=== PATIENT | female | born 1965 | race Caucasian/White ===

== ENCOUNTER 2016-05-20 16:18 | Emergency (ER) | payer MEDICAID ==
[~2016-05-20] VITALS: Ht 157.5 cm; Wt 64.5 kg
[~2016-05-20 16:18] MED LIST: ALPR-475 PO; TRAZ100T15 PO; ZIPR40CA2 PO
[2016-05-20 19:22] VITALS: BP 92/54
== END 2016-05-20 19:24 | disposition home or self-care (01) ==
LOC: ED 17:28
DX: K59.00 Constipation, unspecified (principal); F41.1 Generalized anxiety disorder; F31.9 Bipolar disorder, unspecified; F10.20 Alcohol dependence, uncomplicated; Z87.891 Personal history of nicotine dependence
CPT/HCPCS: 36415; 74020; 80047; 99285

== ENCOUNTER 2016-06-19 02:09 | Emergency (ER) | payer MEDICAID ==
[~2016-06-19] VITALS: Ht 157.5 cm; Wt 64.0 kg
[2016-06-19] MEDS ORDERED: CARB200T PO (02:18)
[2016-06-19] MEDS ORDERED: HYDR10TA4 PO (02:18)
[2016-06-19] MEDS ORDERED: HYDROcodone/APAP 5/325 TABLET ONE (03:29)
[2016-06-19] MEDS ORDERED: DIPH,PERTUSS(ACELL),TET VAC/PF 0.5 ML IM-VACC ONE ×2 (03:29→03:30)
[2016-06-19] MEDS ORDERED: HYDROcodone/APAP 5/325 TABLET PO ONE (03:30)
[2016-06-19 05:01] VITALS: BP 112/67
== END 2016-06-19 05:03 | disposition home or self-care (01) ==
LOC: ED 03:33
DX: S02.2XXB Fracture of nasal bones, initial encounter for open fracture (principal); S01.21XA Laceration without foreign body of nose, initial encounter; T14.8 Other injury of unspecified body region; F43.10 Post-traumatic stress disorder, unspecified; F10.20 Alcohol dependence, uncomplicated; K58.9 Irritable bowel syndrome, unspecified; Y09 Assault by unspecified means; Y92.009 Unspecified place in unspecified non-institutional (private) residence as the place of occurrence of the external cause; Y99.8 Other external cause status
CPT/HCPCS: 70450; 70486; 90471; 90715

== ENCOUNTER 2016-08-03 11:04 | Emergency (ER) | payer MEDICAID ==
[~2016-08-03] VITALS: Ht 157.5 cm; Wt 60.2 kg
[~2016-08-03 11:04] MED LIST changes: +CARB200T PO; +HYDR10TA4 PO
[2016-08-03] MEDS ORDERED: HYDROcodone/APAP 5/325 TABLET ONE (11:44)
[2016-08-03] MEDS ORDERED: IBUPROFEN 200 MG TABLET ONE (11:44)
[2016-08-03] MEDS ORDERED: IBUPROFEN 200 MG TABLET PO ONE (12:00)
[2016-08-03] MEDS ORDERED: HYDROcodone/APAP 5/325 TABLET PO ONE (12:00)
[2016-08-03 12:50] VITALS: BP 103/58
== END 2016-08-03 12:53 | disposition home or self-care (01) ==
LOC: ED 12:49
DX: S63.511A Sprain of carpal joint of right wrist, initial encounter (principal); X58.XXXA Exposure to other specified factors, initial encounter; Y93.89 Activity, other specified; Y92.89 Other specified places as the place of occurrence of the external cause; Y99.9 Unspecified external cause status
CPT/HCPCS: 29125; 99284

== ENCOUNTER 2016-09-04 08:27 | Emergency (ER) | payer MEDICAID ==
[~2016-09-04] VITALS: Ht 157.5 cm; Wt 63.2 kg
[2016-09-04] MEDS ORDERED: GABA300C10 PO (08:50)
[2016-09-04] MEDS ORDERED: LEVE250T28 PO (08:50)
[2016-09-04] MEDS ORDERED: SODIUM CHLORIDE FLUSH 10ML SYR IVF ONE (10:00)
[2016-09-04] MEDS ORDERED: SODIUM CHLORIDE 0.9% 1,000ML IVBOLUS ONE (10:00)
[2016-09-04] MEDS ORDERED: ONDANSETRON 2MG/ML, 2ML IVPush ONE (10:00)
[2016-09-04 10:36] LABS: ASPARTATE AMINO TRANSFERASE 30 U/L (15-37); BLOOD UREA NITROGEN 13 mg/dL (7-18)
[2016-09-04 13:00] VITALS: BP 99/62
[2016-09-04] MEDS ORDERED: OMNIPAQUE 350 MG/ML, 100ML BOTTLE ONE (19:43)
== END 2016-09-04 13:39 | disposition home or self-care (01) ==
LOC: ED 10:24
DX: R19.7 Diarrhea, unspecified (principal); F43.10 Post-traumatic stress disorder, unspecified
CPT/HCPCS: 36415; 74177; 80053; 81001; 84703; 85025; 87324; 89055; 96360; 99285; J7030; Q9967

== ENCOUNTER 2017-12-22 12:34 | Emergency (ER) | payer MEDICAID, OTHER ==
[~2017-12-22] VITALS: Ht 157.5 cm; Wt 60.5 kg
[~2017-12-22 12:34] MED LIST changes: +GABA300C10 PO; +LEVE250T28 PO; +TRAZ-137 PO; -TRAZ100T15 PO
[2017-12-22 12:40] VITALS: BP 111/77
[2017-12-22] MEDS ORDERED: HYDROcodone/APAP 5/325 TABLET ONE (12:56)
[2017-12-22] MEDS ORDERED: HYDROcodone/APAP 5/325 TABLET PO PRN (13:00)
== END 2017-12-22 13:44 | disposition home or self-care (01) ==
LOC: ED 13:30
DX: S90.111A Contusion of right great toe without damage to nail, initial encounter (principal); X58.XXXA Exposure to other specified factors, initial encounter; Y93.89 Activity, other specified; Y92.009 Unspecified place in unspecified non-institutional (private) residence as the place of occurrence of the external cause; Y99.8 Other external cause status
CPT/HCPCS: 82962; 99284

== ENCOUNTER 2017-12-27 16:14 | Emergency (ER) | payer OTHER ==
[~2017-12-27] VITALS: Ht 157.5 cm; Wt 62.4 kg
[2017-12-27 16:18] VITALS: BP 106/71
== END 2017-12-27 16:48 | disposition home or self-care (01) ==
LOC: ED 16:30
DX: Z02.89 Encounter for other administrative examinations (principal); I10 Essential (primary) hypertension; E11.9 Type 2 diabetes mellitus without complications; F31.9 Bipolar disorder, unspecified; F43.10 Post-traumatic stress disorder, unspecified; Z87.891 Personal history of nicotine dependence
CPT/HCPCS: 99281

== ENCOUNTER 2018-03-22 20:40 | Emergency (ER) | payer MEDICAID, OTHER ==
[~2018-03-22] VITALS: Ht 154.9 cm; Wt 62.9 kg
[2018-03-22 20:42] VITALS: BP 127/77
[2018-03-22] MEDS ORDERED: LIDOCAINE 1%, 10ML INFIL ONE (21:00)
[2018-03-22] MEDS ORDERED: LIDOCAINE 2% VISCOUS 15 ML UDC MM PRN (21:00)
[2018-03-22] MEDS ORDERED: HYDROcodone/APAP 5/325 TABLET PO ONE (21:00)
[2018-03-22] MEDS ORDERED: CLINDAMYCIN 300 MG CAPSULE PO ONE (21:00)
[2018-03-22] MEDS ORDERED: LIDOCAINE-MPF 1%, 5ML ONE (21:17)
[2018-03-22] MEDS ORDERED: LIDOCAINE 2% VISCOUS 15 ML UDC ONE (21:17)
[2018-03-22] MEDS ORDERED: HYDROcodone/APAP 5/325 TABLET ONE (21:17)
[2018-03-22] MEDS ORDERED: CLINDAMYCIN 300 MG CAPSULE ONE (21:18)
--- NOTE | 2018-03-22 21:20 | NUR ---
PT MEDICATED PER EMAR. 5 RIGHTS ADDRESSED.
--- NOTE | 2018-03-22 21:26 | NUR ---
CHANTE GAINES AT BEDSIDE
--- NOTE | 2018-03-22 21:41 | NUR ---
Patient/Caregiver given discharge instructions and they have confirmed that they understand the instructions. Patient ambulatory with steady gait.
== END 2018-03-22 21:43 | disposition home or self-care (01) ==
LOC: ED 20:58
DX: K04.7 Periapical abscess without sinus (principal); K12.2 Cellulitis and abscess of mouth; E11.9 Type 2 diabetes mellitus without complications; I10 Essential (primary) hypertension; F41.9 Anxiety disorder, unspecified; F31.9 Bipolar disorder, unspecified
CPT/HCPCS: 41800; 99283